=== PATIENT | female | born 1970 | race Caucasian/White ===

== ENCOUNTER 2017-03-02 07:43 | Emergency (ER) | payer BC ==
[2017-03-02 08:03] VITALS: BP 139/85
--- NOTE | 2017-03-02 08:14 | UC ---
Complaint Female HPI - HPI Summary HPI Summary: complaint of swelling in right side of labia that started approx 7 days ago yesterday the swelling, pain has increased feels warm, difficult to walk due to pain using hot compresses yesterday without relief hasn't taken any medication for pain denies dysuria, vaginal discharge and fever LMP 02/06/17, - History Of Current Complaint Chief Complaint: UCGU Stated Complaint: PERSONAL Time Seen by Provider: 03/02/17 07:59 Hx Obtained From: Patient Hx Last Menstrual Period: 02/06/17 - Allergies/Home Medications Allergies/Adverse Reactions: Allergies Allergy/AdvReac Type Severity Reaction Status Date / Time No Known Allergies Allergy Verified 03/02/17 08:03 Home Medications: Home Medications Control 1 tab PO DAILY 03/02/17 [History Confirmed 03/02/17] PMH/Surg Hx/FS Hx/Imm Hx Previously Healthy: Yes - Surgical History Surgical History: Yes Surgery Procedure, Year, and Place: Cervical Surgery for abdnormal cells. - Family History Known Family History: Positive: Hypertension - mother, Diabetes - mother Negative: Cardiac Disease - Social History Occupation: Employed Full-time Lives: With Family Alcohol Use: None Substance Use Type: None Smoking Status (MU): Never Smoked Tobacco Review of Systems Constitutional: Negative Skin: Other - abscerss Eyes: Negative ENT: Negative Respiratory: Negative Cardiovascular: Negative Gastrointestinal: Negative Genitourinary: Negative Motor: Negative Neurovascular: Negative Musculoskeletal: Negative Neurological: Negative Psychological: Negative All Other Systems Reviewed And Are Negative: Yes Physical Exam Triage Information Reviewed: Yes Appearance: No Pain Distress, Well-Nourished, Obese Vital Signs: Initial Vital Signs Temp 99.4 F 03/02/17 07:57 Pulse 78 03/02/17 07:57 Resp 16 03/02/17 07:57 BP 139/85 03/02/17 07:57 Pulse Ox 98 03/02/17 07:57 Vital Signs Reviewed: Yes Eyes: Positive: Conjunctiva Clear ENT: Positive: Pharynx normal, TMs normal Neck: Positive: No Lymphadenopathy Respiratory: Positive: Lungs clear, Normal breath sounds, No respiratory distress Cardiovascular: Positive: RRR, No Murmur, Pulses Normal Abdomen Description: Positive: Nontender, Soft Bowel Sounds: Positive: Present Musculoskeletal: Positive: No Edema Neurological: Positive: Alert Psychological Exam: Normal Skin: Positive: Other - RLE-1cm x1cm abscess-hair follicle Complaint Female Dx - Course Course Of Treatment: exam completed. small abscess - I&D with 18G needle- serosanguinous drainage- culture sent. will start on keflex and bactroban - Differential Dx/Diagnosis Differential Diagnosis/HQI/PQRI: Bartholin Cyst, Other - abscess,folliculitis Provider Diagnoses: abscess- infected hair follicle Discharge - Discharge Plan Condition: Stable Disposition: HOME Prescriptions: Cephalexin CAP* [Keflex CAP*] 500 mg PO TID #21 cap Mupirocin 2% OINT* [Bactroban 2 % Oint*] 1 applic TOPICAL BID #1 tube Patient Education Materials: Folliculitis (ED) Referrals: No Primary Care Phys,NOPCP [Primary Care Provider] - [facility] – [place] [facility] REFERR[facility] [Outside] Additional Instructions: ABSCESS What is an Abscess? An abscess is a collection of pus caused by an infection. It may be a simple infected hair follicle, a boil, or an infection caused by a puncture wound, an untreated wound, or an abrasion. The abscess may come to a head and rupture. Sometimes the abscess may need to be cut open and drained to remove the pus and tissue. Symptoms May Include: Skin redness over the infected area Tight, glossy, "stretched" appearance of the skin Pain or tenderness of the area The affected area may be warm or hot to touch Thin red line (along a vein) from the abscess toward the heart Fever Treatment Recommendations: Apply warm wet compresses to the infected area several times a day. If a dressing was applied, keep it clean and dry. The healthcare provider may have prescribed an antibiotic medicine. The medicine should be taken until it is completely gone, even if you are feeling better. If you stop taking the medicine early, the infection may not be completely gone, and the medication may not work the next time. You should have the abscess rechecked by your healthcare provider as instructed by the emergency department healthcare provider. If a drain was put in the abscess, keep the dressing clean and dry. You may need to change the dressing if it becomes soaked with drainage. It is very important to follow-up with your own healthcare provider as directed. The drain should be removed and the wound rechecked in 2 to 3 days or as directed. Call Your Doctor or Return Here IF: You are not improving, or the abscess looks like it is getting worse. The wound turns red and starts to swell again, or there are red streaks coming from the wound. You develop a fever that does not go down when you take fever medicine such as acetaminophen (Tylenol). The wound continues to leak pus after the drain is removed. You have any new symptoms that worry you. Your blood pressure is pre-hypertensive reading. Please contact your primary care provider within 1 day -4 weeks for further evaluation.
== END 2017-03-02 08:40 | disposition home or self-care (01) ==
LOC: UCEAST 07:43
DX: N76.4 Abscess of vulva (principal)
CPT/HCPCS: 87070; 87205; 87640; 87641; 99212; G0463